=== PATIENT | male | born 1965 | race Caucasian/White ===

== ENCOUNTER 2016-10-17 13:03 | Emergency (ER) | payer OTHER ==
[~2016-10-17] VITALS: Ht 182.9 cm; Wt 91.4 kg
[~2016-10-17 13:03] MED LIST: ADDERALL10 MG PO; AMBIEN5 MG PO; CORTIZONE-10 PL57 GM TP; CYCLOBENZAPRINE10 MG PO; DELTASONE20 M1 PO; FLOVENT DISKUS1 DIS1 IH; Flovent 220 mcg IH; Levaquin PO; NAPROSYN500 MG PO; NAPROXEN500 MG PO; NORCO 5/3251 TABLET PO; OMEPRAZOLE20 MG PO; PEPCID20 MG PO; PERCOCET 5/31 TABLET PO; PREDNISONE5 M1 PO; PREDNISONE50 MG PO; PROVENTIL HFA6.7 GM IH; PROVENTIL,2.5 MG/0.5 IH; Proventil,Ventolin H IH; SENOKOT,SENN1 TABLET PO; VALIUM2 MG PO; VENTOLIN HFA18 GM; VENTOLIN HFA18 GM IH; VYVANSE50 MG PO; XARELTO1 EACH PO; XARELTO20 MG PO; oxyCODONE PO; predniSONE PO
[2016-10-17] MEDS ORDERED: INDOCIN50 MG PO (14:25)
[2016-10-17 15:35] VITALS: BP 162/104
== END 2016-10-17 15:36 | disposition home or self-care (01) ==
LOC: EME 13:03
PROC: 3E0X3BZ Introduction of Anesthetic Agent into Cranial Nerves, Percutaneous Approach (ICD-10-PCS; principal; 2016-10-17)
DX: K02.9 Dental caries, unspecified (principal); Z88.5 Allergy status to narcotic agent; Z91.030 Bee allergy status; F17.200 Nicotine dependence, unspecified, uncomplicated
CPT/HCPCS: 99281; 99284

== ENCOUNTER 2017-03-27 01:17 | Emergency (ER) | payer OTHER ==
[~2017-03-27] VITALS: Ht 182.9 cm; Wt 100.3 kg
[~2017-03-27 01:17] MED LIST changes: +INDOCIN50 MG PO
[2017-03-27 03:28] LABS: HEMATOCRIT 42.9 % (38.0-50.0); MCH 30.6 PG (29.0-34.0); MCHC 34.3 G/DL (30.0-36.0); MCV 89.4 FL (86-99); MEAN PLAT.VOLUME 9.4 uM^3 (9.0-12.4); PLATELET COUNT 212 K/uL (156-360); RBC DIS.WIDTH-CV 12.8 % (11.8-14.6); WHITE BLOOD COUNT 7.3 K/uL (4.1-10.2)
[2017-03-27 03:37] LABS: CHLORIDE 110 mEq/L (99-109); POTASSIUM 3.8 mEq/L (3.7-5.4); SODIUM 142 mEq/L (136-147)
[2017-03-27 03:39] LABS: GLUCOSE 105 mg/dL (70-99)
[2017-03-27 03:40] LABS: ANION GAP 9 MEQ/L (2-14)
[2017-03-27 03:41] LABS: TOTAL BILIRUBIN 0.1 mg/dL (0.0-1.0)
[2017-03-27 03:42] LABS: SERUM ETHYL ALCOHOL 245 mg/dL
[2017-03-27 03:43] LABS: ALKALINE PHOSPHATASE 56 IU/L (3-129); GFR ESTIMATE (CALCULATED) > 59 mL/min/
[2017-03-27 03:44] LABS: UREA NITROGEN (BUN) 11 mg/dL (9-23)
[2017-03-27 04:45] VITALS: BP 105/63
== END 2017-03-27 05:06 | disposition home or self-care (01) ==
LOC: EME → EDBD 01:17 → EME 05:06
PROVIDERS: Physician Assistant
DX: G89.29 Other chronic pain (principal); M54.5 Low back pain; F10.129 Alcohol abuse with intoxication, unspecified; Y90.8 Blood alcohol level of 240 mg/100 ml or more; F17.200 Nicotine dependence, unspecified, uncomplicated; Z88.6 Allergy status to analgesic agent
CPT/HCPCS: 80053; 81003; 85027; 99281; 99284; G0480

== ENCOUNTER → 2017-05-25 | Outpatient (CLI) | payer OTHER | END | disposition home or self-care (01) | LOC: CDC 13:58 | DX: Z01.810 Encounter for preprocedural cardiovascular examination (principal); M19.011 Primary osteoarthritis, right shoulder; M75.01 Adhesive capsulitis of right shoulder; M25.511 Pain in right shoulder; R94.31 Abnormal electrocardiogram [ECG] [EKG] | CPT/HCPCS: 93000 ==

== ENCOUNTER 2017-12-01 19:23 | Emergency (ER) | payer OTHER ==
[~2017-12-01] VITALS: Ht 182.9 cm; Wt 95.7 kg
[2017-12-01 20:01] LABS: BASOPHIL (%) 0.7 % (0-1); BASOPHIL COUNT 0.1 K/uL (0-0.1); EOSINOPHIL COUNT 0.5 K/uL (0-0.3); HEMATOCRIT 48.9 % (38.0-50.0); HEMOGLOBIN 16.7 G/DL (12.5-16.6); IMMATURE GRANULOCYTE (%) 0.3 % (0.0-0.7); LYMPHOCYTE (%) 30.2 % (15-42); LYMPHOCYTE COUNT 2.7 K/uL (1.0-2.8); MCH 29.9 PG (29.0-34.0); MCHC 34.2 G/DL (30.0-36.0); MCV 87.6 FL (86-99); MONOCYTE (%) 9.2 % (3-12); MONOCYTE COUNT 0.8 K/uL (0-0.8); NEUTROPHIL (%) 54.6 % (45-76); NEUTROPHIL COUNT 4.9 K/uL (1.8-6.4); PLATELET COUNT 260 K/uL (156-360); RBC DIS.WIDTH-CV 12.3 % (11.8-14.6); RBC DIS.WIDTH-SD 39.8 % (39-53); RED BLOOD COUNT 5.58 M/uL (4.00-5.50)
[2017-12-01 20:07] LABS: INTER. NORMALIZED RATIO 0.9
[2017-12-01 20:09] LABS: PTT 28.1 SEC (25-37)
[2017-12-01 20:13] LABS: CHLORIDE 105 mEq/L (99-109); POTASSIUM 3.9 mEq/L (3.7-5.4); SODIUM 139 mEq/L (136-147)
[2017-12-01 20:14] LABS: GLUCOSE 89 mg/dL (70-99)
[2017-12-01 20:18] LABS: GFR ESTIMATE (CALCULATED) > 59 mL/min/ (58.99-99999)
[2017-12-01 20:19] LABS: UREA NITROGEN (BUN) 23 mg/dL (9-23)
[2017-12-01 20:22] LABS: TROP-I INTERPRETATION NEGATIVE; TROPONIN-I < 0.01 ng/mL (0.0-0.30)
[2017-12-01 23:07] LABS: TROP-I INTERPRETATION NEGATIVE; TROPONIN-I < 0.01 ng/mL (0.0-0.30)
[2017-12-01 23:41] VITALS: BP 121/89
== END 2017-12-01 23:42 | disposition home or self-care (01) ==
LOC: EME 19:23
PROVIDERS: Emergency Medicine
DX: R07.89 Other chest pain (principal); J44.9 Chronic obstructive pulmonary disease, unspecified; I10 Essential (primary) hypertension; D68.2 Hereditary deficiency of other clotting factors; Z86.711 Personal history of pulmonary embolism; F17.210 Nicotine dependence, cigarettes, uncomplicated; Z88.5 Allergy status to narcotic agent
CPT/HCPCS: 71045; 71275; 80048; 84484; 85025; 85610; 85730; 93005; 99281; 99285; J3010; J7030